=== PATIENT | female | born 1990 | race Caucasian/White ===

== ENCOUNTER 2024-10-31 10:28 | Outpatient (CLI) | payer BC | END 2024-10-31 10:29 | disposition home or self-care (01) | LOC: CSHLAB 10:28 | PROVIDERS: ATTEND Obstetrics & Gynecology | DX: Z01.812 Encounter for preprocedural laboratory examination (principal); O02.1 Missed abortion; Z53.9 Procedure and treatment not carried out, unspecified reason | CPT/HCPCS: 85027; 86850; 86900; 86901 ==

== ENCOUNTER 2024-11-02 09:59 | Day surgery (SDC) | payer BC ==
[2024-10-31 10:53] VITALS: BMI 25.8
[2024-10-31 11:09] LABS: Hematocrit 41.4 % (34.9-44.5); Hemoglobin 13.8 g/dL (12.0-15.5); Mean Corpuscular HGB CONC 33.3 g/dL (32.0-36.0); Mean Corpuscular Hemoglobin 27.3 pg (27.0-33.0); Mean Platelet Volume 10.3 fL (7.4-10.4); Platelet Count 393 10x3/uL (150-450); RBC Distribution Width 13.9 % (11.5-14.5); Red Blood Cell (RBC) Count 5.05 10x6/uL (3.90-5.03); White Blood Cell (WBC) Count 11.7 10x3/uL (3.5-10.5)
[2024-11-02] MEDS ORDERED: CeleCOXIB 100 MG CAP ONE (10:37)
[2024-11-02] MEDS ORDERED: Methylergonovine 0.2 MG/ML VIAL ONE (11:34)
[2024-11-02] MEDS ORDERED: Silver Nitrate Application 1 EACH ONE (11:34)
[2024-11-02] MEDS ORDERED: Lidocaine 1% PF 5 ML VIAL ONE (12:01)
[2024-11-02] MEDS ORDERED: Dexamethasone 4 mg/ml Vial ONE (12:01)
[2024-11-02] MEDS ORDERED: fentaNYL 50 mcg/mL 1 mL Vial ONE (12:01)
[2024-11-02] MEDS ORDERED: PROPOFOL 20 ML ONE (12:01)
[2024-11-02] MEDS ORDERED: Ondansetron PF 4 MG/2 ML Vial ONE (12:01)
[2024-11-02] MEDS ORDERED: CEFAZOLIN 2 GM VIAL ONE (12:13)
[2024-11-02] MEDS ORDERED: Midazolam HCl 2 mg/2 ml Vial ONE (12:21)
== END 2024-11-02 15:03 | disposition home or self-care (01) ==
LOC: CSHSDC 09:59
PROVIDERS: ATTEND Obstetrics & Gynecology
PROC: 10D17ZZ Extraction of Products of Conception, Retained, Via Natural or Artificial Opening (ICD-10-PCS; principal; 2024-11-02)
DX: O02.1 Missed abortion (principal); E03.9 Hypothyroidism, unspecified; F32.A Depression, unspecified; K58.9 Irritable bowel syndrome, unspecified; Z91.048 Other nonmedicinal substance allergy status; Z79.899 Other long term (current) drug therapy; Z79.890 Hormone replacement therapy
CPT/HCPCS: 36415; 85027; 86850; 86900; 86901; 88305; J1100; J2210; J2250; J2405; J2704; J3010

== ENCOUNTER 2025-10-02 08:43 | Inpatient (IN) | payer BC ==
[2025-10-02 09:15] VITALS: BMI 31.0
[2025-10-02] MEDS ORDERED: hydrALAZINE 20 MG/ML VIAL SLOW IVP PRN (09:44)
[2025-10-02] MEDS ORDERED: Lidocaine 1% (PF) 30 ML VIAL SC PRN (09:44)
[2025-10-02] MEDS ORDERED: Carboprost 250 MCG/ML AMP IM PRN (09:45)
[2025-10-02] MEDS ORDERED: Methylergonovine 0.2 MG/ML VIAL IM PRN (09:45)
[2025-10-02] MEDS ORDERED: Diphenoxylate HCl/Atropine Tablet PO PRN ×2 (09:45)
[2025-10-02] MEDS ORDERED: Tranexamic Acid 1,000 MG/10 ML VIAL IVP PRN (09:45)
[2025-10-02] MEDS ORDERED: Oxytocin 30 units/NS 500 ML 500 ML IV SCH (09:45)
[2025-10-02] MEDS ORDERED: Acetaminophen 500 MG TAB PO PRN (09:45)
[2025-10-02 10:42] LABS: Hematocrit 36.9 % (34.9-44.5); Hemoglobin 11.9 g/dL (12.0-15.5); Mean Corpuscular Hemoglobin 25.5 pg (27.0-33.0); Mean Corpuscular Volume 79.2 fL (81.6-98.3); Platelet Count 283 10x3/uL (150-450); Red Blood Cell (RBC) Count 4.66 10x6/uL (3.90-5.03); White Blood Cell (WBC) Count 12.60 10x3/uL (3.5-10.5)
[2025-10-02 11:05] LABS: Hep B Surf Ag - L&D Non-Reactive S/CO (NonReactive)
[2025-10-02] MEDS: Ondansetron PF 4 MG/2 ML Vial IVP PRN ×2 (11:08→17:02)
[2025-10-02 11:09] LABS: Syphilis Antibody Index 0.09 S/CO (<1.00 Non-Reactive)
[2025-10-02] MEDS ORDERED: diphenhydrAMINE 50 MG/ML VIAL IVP PRN (12:38)
[2025-10-02] MEDS ORDERED: Communication Order-Pharmacy FS SCH (12:45)
[2025-10-02] MEDS: Oxytocin 30 units/NS 500 ML 500 ML IV SCH (15:20)
[2025-10-02] MEDS: fentaNYL 2 mcg/Ropivacaine 0.2% Epidural 100 ML CADD EPIDURAL SCH (22:02)
[2025-10-03] MEDS: Acetaminophen 325 MG TAB PO PRN (01:06)
[2025-10-03] MEDS: Ibuprofen 800 MG TAB PO PRN (01:12)
[2025-10-03] MEDS ORDERED: Preparation H Ointment 28 GM TUBE PR PRN (02:50)
[2025-10-03] MEDS ORDERED: Lanolin Ointment 7 GM TUBE TOP PRN (02:50)
[2025-10-03] MEDS ORDERED: Benzocaine-Menthol 82.5 ML CAN TOP PRN (02:50)
[2025-10-03] MEDS ORDERED: Milk Of Magnesia 30 ML UDCUP PO PRN (02:50)
[2025-10-03] MEDS ORDERED: hydrALAZINE 20 MG/ML VIAL SLOW IVP PRN (02:50)
[2025-10-03] MEDS ORDERED: diphenhydrAMINE 25 MG CAP PO PRN (02:50)
[2025-10-03] MEDS ORDERED: Bisacodyl 10 MG SUPP PR PRN (02:50)
[2025-10-03] MEDS: Erythromycin Base 0.5% Oint 1 GM TUBE ONE (06:22)
[2025-10-03] MEDS: fentaNYL/Ropivacaine Epidural 100 ML ONE (06:22)
[2025-10-03] MEDS: Hepatitis B Vaccine 10 MCG/0.5 ML SYR ONE (06:22)
[2025-10-03] MEDS: Ibuprofen 800 MG TAB PO SCH (09:06)
[2025-10-03] MEDS: Ferrous Sulfate 325 MG TAB PO SCH (09:08)
[2025-10-03] MEDS ORDERED: Ondansetron PF 4 MG/2 ML Vial IVP PRN (10:09)
[2025-10-03] MEDS ORDERED: Bupivacaine 0.25% HCL 30 ML VIAL ONE (13:00)
[2025-10-04 07:55] VITALS: BP 131/75; TEMP 97.6
== END 2025-10-04 15:15 | disposition home or self-care (01) | DRG 807 ==
LOC: CSHLD/OP 08:43 → CSHLD 09:45 → CSHPP 10-03 02:35
PROVIDERS: ADMIT Obstetrics & Gynecology; ATTEND Obstetrics & Gynecology
PROC: 3E0334Z Introduction of Serum, Toxoid and Vaccine into Peripheral Vein, Percutaneous Approach (ICD-10-PCS; 2025-10-02)
PROC: 10E0XZZ Delivery of Products of Conception, External Approach (ICD-10-PCS; principal; 2025-10-03)
PROC: 4A1HXCZ Monitoring of Products of Conception, Cardiac Rate, External Approach (ICD-10-PCS; 2025-10-03)
PROC: 0HQ9XZZ Repair Perineum Skin, External Approach (ICD-10-PCS; 2025-10-03)
DX: O48.0 Post-term pregnancy (principal); Z37.0 Single live birth; Z79.899 Other long term (current) drug therapy; Z91.030 Bee allergy status; Z3A.40 40 weeks gestation of pregnancy; O70.0 First degree perineal laceration during delivery; Z23 Encounter for immunization
CPT/HCPCS: 51702; 85027; 86780; 86850; 86900; 86901; 87340; 99285; J0665; J2405; J2590; J3010; J7120